=== PATIENT | male | born 1940 | race Caucasian/White ===

== ENCOUNTER → 2016-10-13 | Outpatient (CLI) | payer MEDICARE ==
--- NOTE | 2016-10-13 16:47 | PCVCIMAG ---
APPROVED REPORT Study performed: 10/13/2016 13:11:57 EXAM: Comprehensive 2D, Doppler, and color-flow Echocardiogram Status: routine BSA: 3.56 HR: 61 bpmBP: 140/80 mmHg Rhythm: NSR 2D Dimensions LVEF(%): 59.73 (>50%) IVSd: 10.24 (7-11mm)LVOT Diam: 20.65 (18-24mm) LVDd: 50.07 mm LVPWs: 25.07 mm PWd: 7.60 (7-11mm)Ascending Ao: 32.84 (22-36mm) LVDs: 34.10 (25-40mm) Left Atrium: 34.66 (27-40mm) Aortic Root: 28.60 mm Santiago's LVEF: 59.73 % Volumes Left Atrial Volume (Systole) Single Plane 4CH: 34.92 mLSingle Plane 2CH: 42.00 mL LA ESV Index: 17.00 mL/m2 Aortic Valve AoV Peak Sukhi.: 2.72 m/s AO Peak Gr.: 29.50 mmHgLVOT Max P.64 mmHg AO Mean Gr.: 17.46 mmHgLVOT Mean P.67 mmHg AO V2 Mean: 1.99 m/sLVOT Max V: 1.29 m/s AO V2 VTI: 67.48 cmLVOT Mean V: 0.92 m/s MICHELLE (VTI): 1.45 [id number] V1 VTI: 29.24 cm MICHELLE Vmax: 1.59 cm2 AI Vmax: 4.33 m/sSV (LVOT): 97.91 mL AI [place]: 2.38 m/s2 AI PHT: 527.91 ms Mitral Valve E/A Ratio: 120.0 MV Decel. Time: 257.02 ms MV E Max Sukhi.: 1.20 m/s MV A Sukhi.: 0.01 m/s TDI E/Lateral E': 12.00E/Medial E': 15.00 Medial E' Sukhi.: 0.08 m/s Lateral E' Sukhi.: 0.10 m/s Pulmonary Vein P Vein S: 0.66 m/sP Vein A: 0.23 m/s P Vein D: 0.46 m/sP Vein A Dur.: 76.1 msec P Vein S/D Ratio: 1.43 Left Ventricle The left ventricle is normal size. There is normal LV segmental wall motion. There is normal left ventricular wall thickness. Left ventricular systolic function is normal. The left ventricular ejection fraction is within the normal range. LVEF is 55-60%. The left ventricular diastolic function is normal. Right Ventricle The right ventricle is normal size. The right ventricular systolic function is normal. Atria The left atrium size is normal. The right atrium size is normal. Aortic Valve The aortic valve is normal in structure. Mild aortic regurgitation. Mild to moderate aortic stenosis. Aortic Valve area is 1.4cm2. Peak gradient 29mmhg. Mean gradient 18mmhg. Mitral Valve The mitral valve is normal in structure. Trace mitral regurgitation. No evidence of mitral valve stenosis. Tricuspid Valve The tricuspid valve is normal in structure. There is no tricuspid valve regurgitation noted. Pulmonic Valve The pulmonary valve is normal in structure. There is no pulmonic valvular regurgitation. Great Vessels The aortic root is normal in size. IVC is normal in size and collapses with >50% inspiration Pericardium There is no pericardial effusion. <Conclusion> Left ventricular systolic function is normal. The left ventricular ejection fraction is within the normal range. LVEF is 55-60%. The right ventricle is normal size. The left atrium size is normal. Mild to moderate aortic stenosis. Aortic Valve area is 1.4cm2. Peak gradient 29mmhg. Mean gradient 18mmhg. Trace mitral regurgitation. There is no tricuspid valve regurgitation noted. There is no pericardial effusion.
== END | disposition home or self-care (01) ==
LOC: PCVCIMAG 12:37
PROVIDERS: ATTEND Internal Medicine Cardiovascular Disease
DX: I08.0 Rheumatic disorders of both mitral and aortic valves (principal); I25.10 Atherosclerotic heart disease of native coronary artery without angina pectoris; I73.9 Peripheral vascular disease, unspecified; I10 Essential (primary) hypertension; G47.33 Obstructive sleep apnea (adult) (pediatric); E78.00 Pure hypercholesterolemia, unspecified; Z82.49 Family history of ischemic heart disease and other diseases of the circulatory system; Z85.51 Personal history of malignant neoplasm of bladder; Z79.82 Long term (current) use of aspirin; Z87.891 Personal history of nicotine dependence; Z88.2 Allergy status to sulfonamides
CPT/HCPCS: 80061; 93306; G0463

== ENCOUNTER → 2017-03-26 | Outpatient (CLI) | payer MEDICARE | END | disposition home or self-care (01) | LOC: PCVCIMAG 10:26 | DX: I35.0 Nonrheumatic aortic (valve) stenosis (principal); I25.10 Atherosclerotic heart disease of native coronary artery without angina pectoris; I10 Essential (primary) hypertension; E78.5 Hyperlipidemia, unspecified; I73.9 Peripheral vascular disease, unspecified | CPT/HCPCS: 93325; 93351 ==

== ENCOUNTER → 2017-10-17 | Outpatient (CLI) | payer MEDICARE | END | disposition home or self-care (01) | LOC: PCVCCLINIC 15:23 | PROVIDERS: ATTEND Internal Medicine Cardiovascular Disease | DX: I25.10 Atherosclerotic heart disease of native coronary artery without angina pectoris (principal); I35.0 Nonrheumatic aortic (valve) stenosis; G47.33 Obstructive sleep apnea (adult) (pediatric); E78.00 Pure hypercholesterolemia, unspecified; I10 Essential (primary) hypertension; E78.1 Pure hyperglyceridemia; Z87.891 Personal history of nicotine dependence; Z79.82 Long term (current) use of aspirin; Z88.8 Allergy status to other drugs, medicaments and biological substances | CPT/HCPCS: 80061; 93005; G0463 ==

== ENCOUNTER → 2018-04-18 | Outpatient (CLI) | payer MEDICARE ==
--- NOTE | 2018-04-18 15:05 | PCVCIMAG ---
APPROVED REPORT Study performed: 04/18/2018 13:24:29 EXAM: Comprehensive 2D, Doppler, and color-flow Echocardiogram Patient Location: Echo lab Status: routine BSA: 2.16 HR: 79 bpmBP: 122/70 mmHg Rhythm: NSR Other Information Study Quality: Technically Difficult Risk Factors: Cardiac Risk Factors: HTN Indications CAD Aortic Stenosis, ENIO 2D Dimensions IVSd: 12.66 (7-11mm)LVOT Diam: 19.75 (18-24mm) LVDd: 32.61 mm PWd: 10.24 (7-11mm)Ascending Ao: 33.27 (22-36mm) LVDs: 27.93 (25-40mm) Left Atrium: 32.74 (27-40mm) Aortic Root: 28.27 mm LV Single Plane 4CH: 59.43 % Volumes Left Atrial Volume (Systole) Single Plane 4CH: 42.99 mLSingle Plane 2CH: 26.49 mL LA ESV Index: 17.00 mL/m2 Aortic Valve AoV Peak Sukhi.: 3.14 m/s AO Peak Gr.: 39.45 mmHgLVOT Max P.33 mmHg AO Mean Gr.: 24.97 mmHgLVOT Mean P.29 mmHg AO V2 Mean: 2.40 m/sLVOT Max V: 1.35 m/s AO V2 VTI: 62.36 cmLVOT Mean V: 0.99 m/s MICHELLE (VTI): 1.16 [id number] V1 VTI: 23.59 cm MICHELLE Vmax: 1.32 cm2 SV (LVOT): 72.22 mL Mitral Valve E/A Ratio: 0.6 MV Decel. Time: 289.60 ms MV E Max Sukhi.: 0.83 m/s MV A Sukhi.: 1.32 m/s IVRT: 114.19 ms TDI E/Lateral E': 8.30E/Medial E': 11.86 Medial E' Sukhi.: 0.07 m/s Lateral E' Sukhi.: 0.10 m/s Pulmonary Valve PV Peak Gr.: 3.22 mmHg Left Ventricle The left ventricle is normal size. There is normal LV segmental wall motion. There is normal left ventricular wall thickness. Left ventricular systolic function is normal. The left ventricular ejection fraction is within the normal range. LVEF is 60-65%. The left ventricular diastolic function is normal. Right Ventricle The right ventricle is normal size. The right ventricular systolic function is normal. Atria The left atrium size is normal. The right atrium size is normal. Aortic Valve Aortic valve is probably trileaflet. Aortic valve leaflets are moderately thickened. Trace aortic regurgitation. Aortic peak gradient is 39mmHg. Mean gradient is 25mmHg. Calculated aortic valve area is 1.2cm2. Mitral Valve The mitral valve is normal in structure. There is no mitral valve regurgitation noted. No evidence of mitral valve stenosis. Tricuspid Valve The tricuspid valve is normal in structure. There is no tricuspid valve regurgitation noted. Pulmonic Valve The pulmonary valve is normal in structure. There is no pulmonic valvular regurgitation. Great Vessels The aortic root is normal in size. IVC is normal in size and collapses >50% with inspiration. Pericardium There is no pericardial effusion. <Conclusion> The left ventricle is normal size. LVEF is 60-65%. The left ventricular diastolic function is normal. The right ventricle is normal size. The left atrium size is normal. Aortic valve is probably trileaflet. Aortic valve leaflets are moderately thickened. Trace aortic regurgitation. Aortic peak gradient is 39mmHg. Mean gradient is 25mmHg. Calculated aortic valve area is 1.2cm2. There is no mitral valve regurgitation noted. There is no tricuspid valve regurgitation noted. The aortic root is normal in size. There is no pericardial effusion.
== END | disposition home or self-care (01) ==
LOC: PCVCIMAG 13:00
PROVIDERS: ATTEND Internal Medicine Cardiovascular Disease
DX: I25.10 Atherosclerotic heart disease of native coronary artery without angina pectoris (principal); I25.84 Coronary atherosclerosis due to calcified coronary lesion; G47.33 Obstructive sleep apnea (adult) (pediatric); I10 Essential (primary) hypertension; I35.0 Nonrheumatic aortic (valve) stenosis; I73.9 Peripheral vascular disease, unspecified; E78.00 Pure hypercholesterolemia, unspecified; H40.059 Ocular hypertension, unspecified eye; Z87.891 Personal history of nicotine dependence; Z79.82 Long term (current) use of aspirin
CPT/HCPCS: 36415; 80061; 93005; 93306; G0463

== ENCOUNTER → 2018-12-23 | Outpatient (CLI) | payer MEDICARE | END | disposition home or self-care (01) | LOC: PCVCCLINIC 15:30 | PROVIDERS: ATTEND Internal Medicine Cardiovascular Disease | DX: I25.10 Atherosclerotic heart disease of native coronary artery without angina pectoris (principal); I35.0 Nonrheumatic aortic (valve) stenosis; I25.84 Coronary atherosclerosis due to calcified coronary lesion; I10 Essential (primary) hypertension; E78.00 Pure hypercholesterolemia, unspecified; G47.33 Obstructive sleep apnea (adult) (pediatric); R94.31 Abnormal electrocardiogram [ECG] [EKG]; E78.5 Hyperlipidemia, unspecified; Z88.2 Allergy status to sulfonamides; Z79.82 Long term (current) use of aspirin; Z79.899 Other long term (current) drug therapy; Z87.891 Personal history of nicotine dependence | CPT/HCPCS: 36415; 80061; 93005; G0463 ==